=== PATIENT | male | born 1960 | race Caucasian/White ===

== ENCOUNTER 2017-03-05 11:23 | Emergency (ER) | payer BC ==
[2017-03-05] MEDS ORDERED: methylPREDNISolone SOD SUCCI 125 MG/2 ML VIAL IV STA (11:28)
[2017-03-05] MEDS ORDERED: diphenhydrAMINE 50 MG/ML 1 ML VIAL IVP STA (11:28)
[2017-03-05] MEDS ORDERED: FAMOTIDINE 20 MG/2 ML VIAL IV STA (11:37)
--- NOTE | 2017-03-05 12:47 | ED ---
Allergic Reaction HPI - General Chief complaint: Allergic Reaction Stated complaint: 2 BEE STING, ALLERGIC Time Seen by Provider: 03/05/17 11:28 Source: patient, RN notes reviewed Mode of arrival: ambulatory Limitations: no limitations - History of Present Illness Initial Comments: 57-year-old male presents emergency Department chief complaint ALLERGIC reaction. Patient states that he was stung by a bee twice and is legs and one towards his left side of his chest. Patient states that he's had ALLERGIC reactions in the past and states that he's had come the hospital. He states that this time he does not have any symptoms of his concern. Patient states he was given epi in the past as a prescription never used that home. Patient did not take any medications prior arrival symptoms have been 15 minutes ago. - Related Data Allergies Allergy/AdvReac Type Severity Reaction Status Date / Time bee venom protein (honey bee) Allergy Anaphylaxis Verified 03/05/17 11:39 Review of Systems ROS Statement: Those systems with pertinent positive or pertinent negative responses have been documented in the HPI. ROS Other: All systems not noted in ROS Statement are negative. Past Medical History Past Medical History: Hyperlipidemia, Hypertension History of Any Multi-Drug Resistant Organisms: None Reported Past Surgical History: Tonsillectomy Past Psychological History: No Psychological Hx Reported Smoking Status: Never smoker Past Alcohol Use History: Occasional Past Drug Use History: None Reported General Exam Limitations: no limitations General appearance: alert, in no apparent distress Head exam: Present: atraumatic, normocephalic, normal inspection ENT exam: Present: normal exam, normal oropharynx, mucous membranes moist, TM's normal bilaterally Neck exam: Present: normal inspection. Absent: tenderness, meningismus, lymphadenopathy Respiratory exam: Present: normal lung sounds bilaterally. Absent: respiratory distress, wheezes, rales, rhonchi, stridor Cardiovascular Exam: Present: regular rate, normal rhythm, normal heart sounds. Absent: systolic murmur, diastolic murmur, rubs, gallop, clicks Skin exam: Present: warm, dry, other (Erythematous area noted from bee sting to right leg, left leg and left side anterior chest wall) Course Vital Signs 03/05/17 11:30 Temperature 98.2 F Pulse Rate 92 Respiratory 18 Rate Blood Pressure 161/99 O2 Sat by Pulse 98 Oximetry Medical Decision Making - Medical Decision Making 57-year-old male present emergency department for bee sting possible ALLERGIC rash. Patient never formed any obvious evidence of ALLERGIC reaction nor it's burn. He was given medications for this as he has had reactions in the past. He is advised continue Benadryl 2 mg every 6 hours. Patient tenderness symptoms worsen patient agrees to plan. Disposition Clinical Impression: Bee sting Disposition: HOME SELF-CARE Condition: Stable Instructions: Insect Bite or Sting (ED) Additional Instructions: Please return to the Emergency Department if symptoms worsen or any other concerns. Referrals: Sam Darling MD [Primary Care Provider] - 1-2 days Time of Disposition: 12:46
[2017-03-05 13:05] VITALS: BP 154/91; PULSE 96; RESP 18; TEMP 98
== END 2017-03-05 13:14 | disposition home or self-care (01) ==
LOC: EC 11:23
DX: T63.441A Toxic effect of venom of bees, accidental (unintentional), initial encounter (principal); Z91.030 Bee allergy status
CPT/HCPCS: 99283; 96374; 96375 ×2; J1200; J2930